=== PATIENT | female | born 1980 | race Caucasian/White ===

== ENCOUNTER 2017-04-24 03:03 | Emergency (ER) | payer OTHER ==
[2017-04-24] MEDS ORDERED: PROZAC (03:10)
[2017-04-24] MEDS ORDERED: ABILIFY (03:10)
[2017-04-24] MEDS ORDERED: KLONOPIN1 MG (03:11)
== END 2017-04-24 04:24 | disposition home or self-care (01) ==
LOC: SED 03:03
DX: L03.115 Cellulitis of right lower limb (principal); F31.9 Bipolar disorder, unspecified; F17.210 Nicotine dependence, cigarettes, uncomplicated; Z79.899 Other long term (current) drug therapy
CPT/HCPCS: 96365; 99284